=== PATIENT | female | born 1960 | race Asian ===

== ENCOUNTER 2017-03-27 21:52 | Emergency (ER) | payer OTHER ==
[~2017-03-27] VITALS: Ht 165.1 cm; Wt 57.0 kg
[2017-03-27 22:34] VITALS: BP 171/94
== END 2017-03-28 02:30 | disposition left against medical advice (07) ==
LOC: ER 21:52
DX: Z04.3 Encounter for examination and observation following other accident (principal); Z53.21 Procedure and treatment not carried out due to patient leaving prior to being seen by health care provider